=== PATIENT | female | born 1960 | race Caucasian/White ===

== ENCOUNTER → 2017-05-15 | Outpatient (CLI) | payer OTHER ==
[~2017-05-15] MED LIST: ADVIN25050 INH; ALBINS/ INH; ALBUAER2 INH; CETI10TA84 PO; CLBCRM30 EXT; GABA-113 PO; ULT/50 PO; [UNRECOGNIZED DRUG - OTHER] PO
[2017-05-15 17:47] LABS: BASO % 0.5 %; BASO ABS # 0.05 K/uL (0-0.2); COMPLETE YES; EOS % 8.1 %; HEMATOCRIT 46.2 % (37-47); IG% 0.4 %; LYMPH % 31.8 %; LYMPH ABS # 3.05 K/uL (1.2-3.4); MEAN CELL VOLUME 88.5 fL (80-100); MEAN CORPUSCULAR HEMOGLOBIN 30.3 pg (25-34); MEAN CORPUSCULAR HGB CONC 34.2 g/dl (32-36); MEAN PLATELET VOLUME 11.3 fL (7.4-10.4); MONO % 5.5 %; NEUT % 53.7 %; PLATELET COUNT 245 K/uL (130-400); RED BLOOD COUNT 5.22 M/uL (4.2-5.4)
[2017-05-15 17:58] LABS: PARTIAL THROMBOPLASTIN RATIO 1.1; PROTHROMBIN TIME (PATIENT) 10.3 SECONDS (9.0-12.0)
[2017-05-15 18:19] LABS: ALT/SGPT 20 U/L (12-78); BLOOD UREA NITROGEN 11 mg/dl (7-18); BUN/CREATININE RATIO 13.7 (10-20); CALCIUM 9.3 mg/dl (8.5-10.1); CARBON DIOXIDE 25 mmol/L (21-32); CHLORIDE 107 mmol/L (98-107); GLUCOSE 83 mg/dl (70-99); POTASSIUM 4.1 mmol/L (3.5-5.1); SODIUM 141 mmol/L (136-145)
[2017-05-15 18:30] LABS: ALB/GLOB RATIO 1.1 (0.9-2); ALKALINE PHOSPHATASE 63 U/L (45-117); AST/SGOT 15 U/L (15-37)
== END | disposition home or self-care (01) ==
LOC: C.LAB1850 16:29
PROVIDERS: ATTEND Internal Medicine
DX: Z11.59 Encounter for screening for other viral diseases (principal); R53.83 Other fatigue; E55.9 Vitamin D deficiency, unspecified; J45.909 Unspecified asthma, uncomplicated; J44.9 Chronic obstructive pulmonary disease, unspecified

== ENCOUNTER → 2017-05-16 | Outpatient (CLI) | payer OTHER ==
[~2017-05-16] MED LIST changes: +OPTIRAY 320 IV PRN
--- NOTE | 2017-05-16 08:46 | DIAGNOSTIC IMAGING REPORT ---
CT OF THE CHEST WITH IV CONTRAST CLINICAL HISTORY: J45.909 [id number] Chronic obstructive pulmonary disease COMPARISON STUDY: July 26, 2009 TECHNIQUE: Following the IV administration of 94 mL of Optiray-320, CT of the thorax was performed from the thoracic inlet to the lung bases. Images are reviewed in the axial, sagittal, and coronal planes. IV contrast was administered without complication. A dose lowering technique was utilized adhering to the principles of ALARA. CT DOSE: 512.56 mGy.cm FINDINGS: Thyroid: Imaged portions of the thyroid gland are normal in appearance. Thoracic aorta: The thoracic aorta is normal in course and caliber, noting standard 3-vessel arch anatomy. No aneurysm or dissection is seen. Pulmonary vasculature: The pulmonary trunk is normal in caliber. There are no central filling defects identified to suggest pulmonary embolus. Note that this examination was not protocoled for the evaluation of pulmonary emboli. HEART: The heart is normal in size and configuration, without pericardial effusion. Lungs and pleural spaces: There are no pleural effusions. There is biapical pleural and parenchymal scarring. There are biapical blebs. There is mild emphysema. There are minor right middle lobe and lingular atelectatic changes. There are no areas of focal consolidation to indicate a pneumonia. Mediastinum: There is no mediastinal lymphadenopathy. Norma: Clear. Axilla: Clear. Upper abdomen: The spleen enhances in an inhomogeneous fashion. There is an 8 mm subareolar right breast nodule. This was not clearly present on the preceding study. Mammographic correlation would seem prudent. Skeletal structures: There are no lytic or blastic osseous lesions. IMPRESSION: 1. No evidence of pathologic adenopathy 2. Mild emphysema. No evidence of pneumonia. No suspicious pulmonary masses. 3. 8 mm subareolar right breast nodule 4. Nonspecific inhomogeneous splenic enhancement Electronically signed by: Rishabh Ortiz M.D. 05/16/2017 8:44 AM Dictated Date/Time: 05/16/2017 8:33 AM
== END | disposition home or self-care (01) ==
LOC: C.CTS 08:12
PROVIDERS: ATTEND Internal Medicine Pulmonary Disease
DX: J45.909 Unspecified asthma, uncomplicated (principal); J44.9 Chronic obstructive pulmonary disease, unspecified; N63.10 Unspecified lump in the right breast, unspecified quadrant